=== PATIENT | male | born 1950 | race Caucasian/White ===

== ENCOUNTER 2017-03-02 09:00 | Day surgery (SDC) | payer MEDICARE, OTHER ==
[~2017-03-02 09:00] MED LIST: CEFAZOLIN 1 GM/D5W RTU 1 GM/50 ML RTUPB IV ONE; CEFAZOLIN 1 GM/D5W RTU 1 GM/50 ML RTUPB IV PRN; DEXTROSE 5%-1/2 NORMAL SALINE 1,000 ML IV PRN; DIAZEPAM 5 MG TABLET PO PRN; OXYCODONE-ACETAMINOPHEN 5-325 MG TABLET PO PRN
[2017-03-02 09:45] LABS: HEMATOCRIT 28.1 % (37.9-51.0); HEMOGLOBIN 9.9 g/dL (13.5-17.0); HGB HCT DIFFERENCE 1.6; MEAN CORPUSCULAR HEMOGLOBIN 29.4 pg (27.0-33.4); MEAN CORPUSCULAR HGB CONC 35.1 g/dL (32.0-36.0); MEAN CORPUSCULAR VOLUME 84 fl (80-97); RED BLOOD COUNT 3.36 10^6/uL (4.35-5.55); RED CELL DISTRIBUTION WIDTH 14.8 % (11.5-14.0); WHITE BLOOD COUNT 7.1 10^3/uL (4.0-10.5)
[2017-03-02 10:10] LABS: ANION GAP 17 (5-19); BLOOD UREA NITROGEN 26 mg/dL (7-20); CALCIUM 9.3 mg/dL (8.4-10.2); CARBON DIOXIDE 20 mmol/L (22-30); CHLORIDE 97 mmol/L (98-107); CREATININE RESULT 1.03 mg/dL (0.52-1.25); GLUCOSE 175 mg/dL (75-110); SODIUM 133.6 mmol/L (137-145)
--- NOTE | 2017-03-02 10:21 | RADIOLOGY REPORT (SQ) ---
EXAM DESCRIPTION: CHEST SINGLE VIEW COMPLETED DATE/TIME: 03/02/2017 9:09 am REASON FOR STUDY: Preop COMPARISON: None. EXAM PARAMETERS: NUMBER OF VIEWS: One view. TECHNIQUE: Single frontal radiographic view of the chest acquired. RADIATION DOSE: NA LIMITATIONS: None. FINDINGS: LUNGS AND PLEURA: No opacities, masses or pneumothorax. No pleural effusion. MEDIASTINUM AND HILAR STRUCTURES: No masses. Contour normal. HEART AND VASCULAR STRUCTURES: Heart normal in size. Normal vasculature. BONES: No acute findings. HARDWARE: None in the chest. OTHER: No other significant finding. IMPRESSION: NO ACUTE RADIOGRAPHIC FINDING IN THE CHEST. TECHNICAL DOCUMENTATION: JOB ID: [id number]- All Rights Reserved
[2017-03-02] MEDS ORDERED: FENTANYL CITRATE INJ/PF 100 MCG/2 ML AMPUL ONE (11:28)
[2017-03-02] MEDS ORDERED: BACITRACIN INJ 50,000 UNIT VIAL ONE (11:28)
[2017-03-02] MEDS ORDERED: MIDAZOLAM 2 MG/2 ML INJ ONE (11:28)
[2017-03-02] MEDS ORDERED: LIDOCAINE 0.5% INJ-PF (5 MG/ML) 50 ML SDV ONE (11:29)
--- NOTE | 2017-03-02 13:59 | PDOC DISCHARGE SUMMARY ---
Discharge Summary (SDC) - Discharge Final Diagnosis: Lung cancer. Date of Surgery: 03/02/17 Discharge Date: 03/02/17 Forms: Sedation D/C Instructions, Discharge POC-Surgical Service Treatment or Instructions: Discharge home [after recovery per ASU criteria]. Diet,as tolerated, when fully awake advance as tolerated. Activities within moderation encouraged. Follow up in my office by appointment in about [1 week]. Call for appointment. Leave wounds [covered], [keep clean and dry, until office visit in 1 week]. Meds per med rec. Hold of on school/work [until evaluation in office]. May shower [in 48 hrs], [try to keep operated area as dry as possible]. Prescriptions: Oxycodone HCl/Acetaminophen [Percocet 5-325 mg Tablet] 1 tab PO ASDIR PRN #15 tab PRN Reason: Referrals: JAJA JOSE MD [ACTIVE STAFF] - 03/11/17 3:15 pm Discharge Diet: As Tolerated Respiratory Treatments at Home: Deep Breathing/Coughing Discharge Activity: Activity As Tolerated Report the Following to Your Physician Immediately: Shortness of Breath, Unusual Bleeding
--- NOTE | 2017-03-02 14:03 | Operative Report ---
Operative Report DATE OF SURGERY: 03/02/17 PREOPERATIVE DIAGNOSIS: Lung cancer. POSTOPERATIVE DIAGNOSIS: Lung cancer. OPERATION: 1. Ultrasound evaluation of right internal jugular vein. 2. Port-A -Cath insertion via real-time access in the right internal jugular vein. 3. Angiogram and interpretation. SURGEON: JAJA BOYLE COMMUNITY ASSISTANT: None ANESTHESIA: Moderate Sedation TISSUE REMOVED OR ALTERED: Not applicable. COMPLICATIONS: None ESTIMATED BLOOD LOSS: 5 mL. INTRAOPERATIVE FINDINGS: Of a satisfactory right internal jugular vein to support catheter. Estimated to be about 1.2 cm in diameter. Good position of the catheter tip just down of the right atrium. Easy egress of blood and ingress of heparinized solution. The study shows smooth flow of contrast through the right atrium, ventricle and pulmonary outflow tract. PROCEDURE: After obtaining informed consent, the patient was taken to the [operating room] and positioned supine. The [right] neck and chest were prepared with chlorhexidine and draped out with sterile linen. After the " universal timeout ", in which it was verified that the patient continued to receive antibiotic, the procedure commenced. A steriley sheathed ultrasound probe was used to evaluate the [right] internal jugular vein. Local anesthesia was infiltrated adjacent to the probe. Access into the [right] internal jugular vein was obtained using a micropuncture needle, followed by micropuncture wire and then a micropuncture catheter. This was followed by introduction of a 0.035 guidewire the tip of which was placed down into the inferior vena cava . The port sites was marked , locally anesthetized and incision made. Dissection now proceeded to the deep subcutaneous subcutaneous tissues so that a pocket for the port was made. Meticulous hemostasis was secured and the catheter was tunneled between the 2 incisions. Proximally, the catheter was now positioned using a peel-away sheath. Distally the catheter was tailored to an appropriate length and then mated to the port using the contained fixating device. The port was now placed in the pocket and the catheter optimally positioned. The port was accessed with a Sheridan needle and an angiogram done under digital subtraction. The findings as dictated. With adequate and satisfactory positioning, both lumens of the chamber were irrigated with heparinized solution. The wounds were now closed using interrupted 3-0 PDS to the subcutaneous tissues and a continuous subcuticular suture of 4-0 Monocryl to the skin. These are reinforced with Steri-Strips over benzoin and then dressings applied. Copies of the dictated operative report for Dr. Jaja Weaver MD.
[2017-03-02 14:37] VITALS: BP 143/60
--- NOTE | 2017-03-02 16:20 | RADIOLOGY REPORT (SQ) ---
EXAM DESCRIPTION: PORTACATH INSERTION COMPLETED DATE/TIME: 03/02/2017 2:22 pm REASON FOR STUDY: C34.11 C34.11 MALIGNANT NEOPLASM OF UPPER LOBE, RIGHT BRONCHUS OR L COMPARISON: None. FLUOROSCOPY TIME: 0.6 minutes 7 images saved to PACS. TECHNIQUE: Intra-operative images acquired during surgical procedure to evaluate progress. NUMBER OF IMAGES: 7 LIMITATIONS: None. FINDINGS: Selected images from right Port-A-Cath placement. Tip overlies the SVC. IMPRESSION: IMAGE(S) OBTAINED DURING PROCEDURE. COMMENT: Quality ID [id number]: Final reports for procedures using fluoroscopy that document radiation exp osure indices, or exposure time and number of fluorographic images (if radiation exposure indices are not available) Please consult full operative report of the attending physician for description of the procedure. TECHNICAL DOCUMENTATION: JOB ID: [id number] [employer]- All Rights Reserved
== END 2017-03-02 14:15 | disposition home or self-care (01) ==
LOC: CCL 09:00
PROVIDERS: ATTEND Surgery
PROC: 05HM33Z Insertion of Infusion Device into Right Internal Jugular Vein, Percutaneous Approach (ICD-10-PCS; principal; 2017-03-02)
DX: C34.11 Malignant neoplasm of upper lobe, right bronchus or lung (principal); I10 Essential (primary) hypertension; E78.00 Pure hypercholesterolemia, unspecified; E11.9 Type 2 diabetes mellitus without complications; I25.2 Old myocardial infarction; F17.210 Nicotine dependence, cigarettes, uncomplicated; J44.9 Chronic obstructive pulmonary disease, unspecified
CPT/HCPCS: 36415; 82962; 85027; 80048; 36561; 76937; 77001; 71010; C1752; C1788; C1769; Q9967; J2250; J3490 ×2; J0690; A9270 ×2; J3010; J1644

== ENCOUNTER → 2017-08-15 | Outpatient (CLI) | payer MEDICARE, OTHER ==
--- NOTE | 2017-08-17 07:10 | RADIOLOGY REPORT (SQ) ---
EXAM DESCRIPTION: PET CT SKULL/THIGH COMPLETED DATE/TIME: 08/15/2017 5:50 pm REASON FOR STUDY: LUNG CANCER C34.11 MALIGNANT NEOPLASM OF UPPER LOBE, RIGHT BRONCHUS OR L COMPARISON: Report from PET-CT 08/14/2016, 12/01/2016 RADIONUCLIDE AND DOSE: 10.9 mCi F18 FDG The route of agent administration: Intravenous FASTING BLOOD SUGAR: 55 mg/dl CONTRAST TYPE AND DOSE: No CT contrast given. TECHNIQUE: Blood glucose level was verified. Above dose of FDG was injected intravenously. 2-D seg mented attenuation correction images were obtained from the base of the skull to the midthighs. Nonc ontrast CT images were obtained for attenuation correction and fusion with emission images. CT image s were performed without oral or intravenous contrast and are not sensitive for parenchymal lesions. A series of overlapping emission PET images were obtained. Images reviewed and manipulated at [facility] work station by the radiologist. Images stored on PACS. LIMITATIONS: None. FINDINGS: HEAD AND NECK: No areas of abnormal metabolic activity in the soft tissues of the head and neck. CHEST: In the medial right upper lobe, along the uppermost right hilum, a 2.3 x 1.5 cm spiculated shaina g mass is present with SUV 5.8 (was 2.6 x 1.6 cm with SUV 7.9 on 12/01/2016, was 3 x 1.9 cm with SUV o f 7 on 08/14/2016). The right paratracheal 8 x 7 mm lymph node is present with SUV 1.8 (was 1.4 x 1.3 cm in size with SUV [id number], was 1.2 x 0.8 cm with SUV of 6 on 08/14/2016). A 4 to 5 mm smooth round noncalcified granuloma is present in the periphery of the right lower lobe o n image 120, non metabolic. No pleural effusions. ABDOMEN AND PELVIS: No areas of abnormal metabolic activity in the abdomen or pelvis. Expected physi ologic activity is present in the genitourinary system and bowel. PROXIMAL LOWER EXTREMITIES: No areas of abnormal metabolic activity in the soft tissues of the lower extremities. BONES: No abnormal metabolic activity in the visualized skeleton. ADDITIONAL CT FINDINGS: Obstructive lung disease. Calcified pancreatic head. Right permanent centra l line tip superior vena cava. Moderate coronary artery calcification. Fatty bilateral inguinal her nias left larger than right OTHER: Liver background activity 1.5 SUV. Blood pool background activity 1.0 SUV IMPRESSION: Further decrease in size and metabolic activity of the right upper lobe nodule and right perihilar lymph node compared to previous exams. TECHNICAL DOCUMENTATION: JOB ID: [id number] [employer] All Rights Reserved Reading location - IP/workstation name: [email or web address]
== END ==
LOC: RAD 14:31
PROVIDERS: ATTEND Internal Medicine Hematology & Oncology
DX: C34.11 Malignant neoplasm of upper lobe, right bronchus or lung (principal); J44.9 Chronic obstructive pulmonary disease, unspecified
CPT/HCPCS: 78815; A9552

== ENCOUNTER → 2018-02-13 | Outpatient (CLI) | payer MEDICARE, OTHER ==
--- NOTE | 2018-02-14 07:58 | RADIOLOGY REPORT (SQ) ---
EXAM DESCRIPTION: PET CT SKULL/THIGH COMPLETED DATE/TIME: 02/13/2018 5:49 pm REASON FOR STUDY: LUNG CANCER C34.11 MALIGNANT NEOPLASM OF UPPER LOBE, RIGHT BRONCHUS OR L COMPARISON: Prior PET-CT 08/15/2017 RADIONUCLIDE AND DOSE: 11.1 mCi F18 FDG The route of agent administration: Intravenous FASTING BLOOD SUGAR: 128 mg/dl CONTRAST TYPE AND DOSE: No CT contrast given. TECHNIQUE: Blood glucose level was verified. Above dose of FDG was injected intravenously. 2-D seg mented attenuation correction images were obtained from the base of the skull to the midthighs. Nonc ontrast CT images were obtained for attenuation correction and fusion with emission images. CT image s were performed without oral or intravenous contrast and are not sensitive for parenchymal lesions. A series of overlapping emission PET images were obtained. Images reviewed and manipulated at [facility] by the radiologist. Images stored on PACS. LIMITATIONS: None. FINDINGS: HEAD AND NECK: No areas of abnormal metabolic activity in the soft tissues of the head and neck. CHEST: In the medial right upper lobe, a spiculated mass is present measuring 2.4 x 2.1 cm in size wi th SUV 3.7 (was 2.3 x 1.5 cm in size on PET-CT 08/15/2017 with SUV 5.8). There is 8 new 9 mm nodule along the posterior right upper lobe major fissure axial image 93 with SUV 1.4. A 3 x 2 cm right peritracheal lymph node is present on axial image 97 with SUV 6 (was 8 x 7 mm, SUV 1 .8 on 08/15/2017). ABDOMEN AND PELVIS: In the anterior left lobe liver, a 2.8 x 2.4 cm nodule is present on axial image 149 with SUV of 9. This is new compared to prior study. Multiple other smaller metastatic metabolically active nodules are present in the periphery of the ri ght and left lobe liver about 1 cm in size PROXIMAL LOWER EXTREMITIES: No areas of abnormal metabolic activity in the soft tissues of the lower extremities. BONES: No abnormal metabolic activity in the visualized skeleton. ADDITIONAL CT FINDINGS: Obstructive lung disease, moderate coronary artery calcifications, right perm anent central line tip superior vena cava. Calcifications at the pancreatic head. 4 cm left lower p ole renal cortical cyst. Bilateral fatty inguinal hernias OTHER: Liver background SUV 2.1. Blood pool background SUV 1.6 IMPRESSION: Progression of disease as above TECHNICAL DOCUMENTATION: JOB ID: [id number] [employer]- All Rights Reserved Reading location - IP/workstation name: [email or web address]
== END ==
LOC: RAD 15:30
PROVIDERS: ATTEND Internal Medicine Hematology & Oncology
DX: C34.11 Malignant neoplasm of upper lobe, right bronchus or lung (principal)
CPT/HCPCS: 78815; A9552

== ENCOUNTER 2018-03-18 07:49 | Outpatient (CLI) | payer MEDICARE, OTHER ==
[2018-03-18] MEDS ORDERED: NORMAL SALINE 250 ML IV PRN (07:58)
[2018-03-18 08:10] VITALS: BP 145/63
[2018-03-18] MEDS ORDERED: MAGNESIUM SULFATE 4 GM/D5W 100 ML IV ONE (08:15)
== END 2018-03-18 12:44 | disposition home or self-care (01) ==
LOC: II 07:49 → 5TH 07:53 → II 12:44
PROVIDERS: ATTEND Internal Medicine Hematology & Oncology
PROC: 3E043GC Introduction of Other Therapeutic Substance into Central Vein, Percutaneous Approach (ICD-10-PCS; principal; 2018-03-18)
DX: E83.40 Disorders of magnesium metabolism, unspecified (principal)
CPT/HCPCS: 96367; J3475; 96365; 96366

== ENCOUNTER 2018-03-19 07:08 | Emergency (ER) | payer MEDICARE, OTHER ==
--- NOTE | 2018-03-19 08:23 | ER Document Report ---
ED General - General Chief Complaint: GI Bleeding Stated Complaint: FOOT PAIN Time Seen by Provider: 03/19/18 07:58 Notes: 68-year-old male with a history of metastatic lung cancer presents to the ER after an episode of hemoptysis. The patient stated he is currently under immunotherapy and sees Dr. Watt for oncology. The patient stated he was coughing last night and this morning when he got up he coughed up some dark blood. There was some small clots. Patient denies fever chills denies sore throat. States he does get chest discomfort on and off now and then but none specifically right now denies nausea vomiting denies calf pain or significant leg swelling. TRAVEL OUTSIDE OF THE [place] IN LAST 30 DAYS: No - Related Data Allergies/Adverse Reactions: typhoid vaccine Allergy (Verified 03/19/18 07:10) Past Medical History - Social History Smoking Status: Former Smoker Family History: Other Patient has suicidal ideation: No Patient has homicidal ideation: No - Past Medical History Cardiac Medical History: Reports: Hx Heart Attack - no intervention, Hx Hypertension Denies: Hx Coronary Artery Disease Pulmonary Medical History: Reports: Hx COPD Denies: Hx Asthma, Hx Bronchitis, Hx Pneumonia Neurological Medical History: Denies: Hx Cerebrovascular Accident, Hx Seizures Renal/ Medical History: Denies: Hx Peritoneal Dialysis Musculoskeletal Medical History: Reports Hx Arthritis - generalized - Immunizations Hx Diphtheria, Pertussis, Tetanus Vaccination: Yes Review of Systems - Review of Systems Constitutional: denies: Chills, Fever Respiratory: Cough, Hemoptysis, Short of breath Gastrointestinal: denies: Abdominal pain, Nausea, Vomiting Hematologic/Lymphatic: denies: Swollen glands Neurological/Psychological: denies: Headaches -: Yes All other systems reviewed and negative Physical Exam - Vital signs Vitals: Temp Pulse Resp BP Pulse Ox 98.6 F 98 18 120/56 L 96 03/19/18 07:26 03/19/18 07:26 03/19/18 07:26 03/19/18 07:26 03/19/18 07:26 - Notes Notes: GENERAL_APPEARANCE: well_nourished but chronically ill-appearing, alert, cooperative VITALS: reviewed, see vital signs table. HEAD: no_swelling\tenderness on the head. EYES: PERRL, EOMI, conjunctiva_clear. NOSE: no_nasal_discharge. MOUTH: (-)decreased moisture. THROAT: no_throat_inflammation, no_airway_obstruction. no_lymphadenopathy NECK: supple, no_neck_tenderness, (-)thyromegaly. BACK: no_back_tenderness. CHEST_WALL: no_chest_tenderness. Port right chest LUNGS: no_wheezing, no_rales, no_rhonchi, (-)accessory muscle use, good air e xchange bilateral. HEART: normal_rate, normal_rhythm, normal_S1, normal_S2, (-)S3, (-)S4, no_murmur, no_rub. ABDOMEN: soft, no_abd_tenderness, (-)guarding, (-)rebound, no_organomegaly, no_abd_masses. EXTREMITIES: good pulses in all_extremities, no_swelling\tenderness in the extremities, no_edema. SKIN: warm, dry, good_color, no_rash. MENTAL_STATUS: speech_clear, oriented_X_3, normal_affect, r esponds_appropriately to questions. NEURO: Neg Motor or Sensory Deficits on exam, CN 2-12 intact, DTR 2+ symmetric x 4, No cerbellar signs Course - Re-evaluation Re-evalutation: 03/19/18 08:22 68-year-old male with a history of lung cancer presents with hemoptysis. The patient had an episode this morning where he coughed up once he has not coughed up any more blood at this time. We will do some laboratory testing. 03/19/18 11:55 CT scan shows likely a small amount of pneumonia. Because the patient is in around a healthcare facility I gave him vancomycin and Zosyn. I have spoken with his oncologist. Dr. Watt. The patient's vital signs very stable he has no oxygen requirements. No significant work of breathing. He looks very comfortable. She is okay with him going home and she will follow him up first thing next week. We will place the patient on Levaquin for home. 03/19/18 12:25 Patient has been doing well getting IV antibiotics and is comfortable going home. - Vital Signs Vital signs: Temp Pulse Resp BP Pulse Ox 98.6 F 98 12 156/66 H 97 03/19/18 07:26 03/19/18 07:26 03/19/18 11:42 03/19/18 11:42 03/19/18 11:59 - Laboratory Result Diagrams: 03/19/18 08:06 03/19/18 08:06 Laboratory results interpreted by me: 03/19/18 03/19/18 03/19/18 08:06 08:06 08:06 WBC 14.6 H RBC 3.18 L Hgb 9.2 L Hct 26.7 L RDW 15.0 H Seg Neuts % (Manual) 93 H Lymphocytes % (Manual) 1 L Abs Neuts (Manual) 13.6 H Abs Lymphs (Manual) 0.1 L PT 16.1 H APTT 68.9 H Sodium 131.4 L Chloride 96 L Magnesium 1.1 L* Direct Bilirubin 0.6 H ALT 15 L Creatine Kinase < 20 L Total Protein 5.8 L Albumin 2.8 L - EKG Interpretation by Me EKG shows normal: Sinus rhythm Rate: Normal Rhythm: NSR Discharge - Discharge Clinical Impression: Pneumonia Qualifiers: Pneumonia type: due to unspecified organism Laterality: right Lung location: upper lobe of lung Qualified Code(s): J18.1 - Lobar pneumonia, unspecified organism Condition: Good Disposition: HOME, SELF-CARE Instructions: Pneumonia ([facility]) Additional Instructions: Call Dr. Watt for an appointment next week Prescriptions: Levofloxacin [Levaquin 750 mg Tablet] 750 mg PO DAILY #10 tablet Referrals: LG PIERRE MD [Primary Care Provider] - Follow up as needed
[2018-03-19 08:49] LABS: HEMATOCRIT 26.7 % (37.9-51.0); HEMOGLOBIN 9.2 g/dL (13.5-17.0); MEAN CORPUSCULAR HEMOGLOBIN 28.9 pg (27.0-33.4); MEAN CORPUSCULAR HGB CONC 34.4 g/dL (32.0-36.0); MEAN CORPUSCULAR VOLUME 84 fl (80-97); PLATELET COUNT 273 10^3/uL (150-450); RED BLOOD COUNT 3.18 10^6/uL (4.35-5.55); WHITE BLOOD COUNT 14.6 10^3/uL (4.0-10.5)
[2018-03-19 08:59] LABS: INTERNATIONAL RATION (INR) 1.22; PROTHROMBIN TIME 16.1 SEC (11.4-15.4)
--- NOTE | 2018-03-19 08:59 | RADIOLOGY REPORT (SQ) ---
EXAM DESCRIPTION: CHEST 2 VIEWS COMPLETED DATE/TIME: 03/19/2018 8:39 am REASON FOR STUDY: Hemoptysis COMPARISON: 03/02/2017. Correlation: PET-CT 02/13/2018. EXAM PARAMETERS: NUMBER OF VIEWS: two views TECHNIQUE: Digital Frontal and Lateral radiographic views of the chest acquired. RADIATION DOSE: NA LIMITATIONS: none FINDINGS: LUNGS AND PLEURA: Segmental airspace disease in the right upper lobe. No effusions. MEDIASTINUM AND HILAR STRUCTURES: No masses or contour abnormalities. HEART AND VASCULAR STRUCTURES: Heart normal size. No evidence for failure. BONES: No acute findings. HARDWARE: Right-sided port tip overlying SVC. OTHER: No other significant finding. IMPRESSION: Right upper lobe pneumonia. TECHNICAL DOCUMENTATION: JOB ID: [id number] [employer]- All Rights Reserved Reading location - IP/workstation name: [email or web address]
[2018-03-19 09:00] LABS: PARTIAL THROMBOPLASTIN TIME 68.9 SEC (23.5-35.8)
[2018-03-19 09:09] LABS: ALANINE AMINOTRANSFERASE 15 U/L (21-72); ALBUMIN 2.8 g/dL (3.5-5.0); ALKALINE PHOSPHATASE 116 U/L (38-126); ANION GAP 9 (5-19); ASPARTATE AMINO TRANSFERASE 22 U/L (17-59); BILIRUBIN,DIRECT 0.6 mg/dL (0.0-0.4); BILIRUBIN,TOTAL 0.9 mg/dL (0.2-1.3); BLOOD UREA NITROGEN 16 mg/dL (7-20); CALCIUM 9.5 mg/dL (8.4-10.2); CARBON DIOXIDE 26 mmol/L (22-30); CHLORIDE 96 mmol/L (98-107); GLUCOSE 93 mg/dL (75-110); SODIUM 131.4 mmol/L (137-145); TOTAL PROTEIN 5.8 g/dL (6.3-8.2)
[2018-03-19 09:12] LABS: ABSOLUTE LYMPHOCYTES# (MANUAL) 0.1 10^3/uL (0.5-4.7); ABSOLUTE MONOCYTES # (MANUAL) 0.9 10^3/uL (0.1-1.4); ABSOLUTE NEUTROPHILS# (MANUAL) 13.6 10^3/uL (1.7-8.2); BASOPHILS % (MANUAL) 0 % (0-2); EOSINOPHILS % (MANUAL) 0 % (0-6); LYMPHOCYTES % (MANUAL) 1 % (13-45); MONOCYTES % (MANUAL) 6 % (3-13); SEGMENTED NEUTROPHILS % (MAN) 93 % (42-78); TOTAL CELLS COUNTED 100
[2018-03-19 09:13] LABS: ANISOCYTOSIS SLIGHT; OVALOCYTES 1+; PLATELET COMMENT ADEQUATE; POIKILOCYTOSIS 1+; SCHISTOCYTES SLIGHT
[2018-03-19 09:17] LABS: CREATINE KINASE < 20 U/L (55-170)
[2018-03-19 09:28] LABS: NT PRO BNP 694 pg/mL (5-900); TROPONIN I < 0.012 ng/mL
--- NOTE | 2018-03-19 10:23 | RADIOLOGY REPORT (SQ) ---
EXAM DESCRIPTION: CTA CHEST COMPLETED DATE/TIME: 03/19/2018 10:00 am REASON FOR STUDY: Hemoptysis COMPARISON: None. Correlation: PET-CT 02/13/2018 TECHNIQUE: CT scan of the chest performed using helical scanning technique with dynamic intravenous contrast injection. Images reviewed with lung, soft tissue and bone windows. Reconstructed coronal and sagittal MPR images reviewed. Additional 3 dimensional post-processing performed to develop Maximal Intensity Projection images (TX P). All images stored on PACS. All CT scanners at this facility use dose modulation, iterative reconstruction, and/or weight based d osing when appropriate to reduce radiation dose to as low as reasonably achievable (ALARA). [facility]: Dose Right [facility]: CareDose [facility]: Dose Right [facility]: Teradose 4D [facility]: nTAG Interactive CONTRAST TYPE AND DOSE: contrast/concentration: Isovue 350.00 mg/ml; Total Contrast Delivered: 75.0 ml; Total Saline Delivered: 75.0 ml RENAL FUNCTION: GFR > 60. RADIATION DOSE: CT Rad equipment meets quality standard of care and radiation dose reduction techniq ues were employed. CTDIvol: 13.2 - 14.4 mGy. DLP: 639 mGy-cm. . LIMITATIONS: None. FINDINGS: LUNGS AND PLEURA: Spiculated mass right upper lobe not significantly changed. Segmental a irspace disease more inferiorly in the right upper lobe consistent with superimposed pneumonia. The recently described smaller right upper lobe nodule along the major fissure is obscured by airspace di sease. No effusions. AORTA AND GREAT VESSELS: No aneurysm. Contrast bolus not optimized for the aorta. HEART: No pericardial effusion. PULMONARY ARTERIES: No emboli visualized in the main pulmonary arteries or the segmental branches. HILAR AND MEDIASTINAL STRUCTURES: Stable mediastinal adenopathy. HARDWARE: Right-sided port tip in the SVC. UPPER ABDOMEN: No significant findings. Limited exam. THYROID AND OTHER SOFT TISSUES: Stable. BONES: Nothing acute. 3D MIPS: Confirm above findings. OTHER: No other significant finding. IMPRESSION: No PE. Known right upper lobe mass and contiguous mediastinal adenopathy with interval development of adjacent airspace disease consistent with superimposed pneumonia. COMMENT: Quality ID # [id number]: Final reports with documentation of one or more dose reduction techniques (e.g., Automated exposure control, adjustment of the mA and/or kV according to patient size, use of iterative reconstruction technique) TECHNICAL DOCUMENTATION: JOB ID: [id number] [employer]- All Rights Reserved Reading location - IP/workstation name: [email or web address]
[2018-03-19] MEDS: MAGNESIUM SULFATE/D5W 1 GM/100 ML RTUPB IV SCH ×2 (11:35→12:55)
[2018-03-19] MEDS ORDERED: PIPERACILLIN/TAZOBACTAM 3.375 GM VIAL IV ONE (11:48)
[2018-03-19] MEDS ORDERED: VANCOMYCIN HCL INJ 1000 MG VIAL IV ONE (11:48)
[2018-03-19 15:57] VITALS: BP 148/69
== END 2018-03-19 15:58 | disposition home or self-care (01) ==
LOC: ER 07:08
DX: J18.1 Lobar pneumonia, unspecified organism (principal); R04.2 Hemoptysis; R06.02 Shortness of breath; Z87.891 Personal history of nicotine dependence; I10 Essential (primary) hypertension; J44.9 Chronic obstructive pulmonary disease, unspecified
CPT/HCPCS: 36591; 99285; 96365; 96366; 96368; 36415; 82550; 83735; 85025; 85610; 85730; 80053; 84484; 83880; 71046; 71275; J3475; J3370; J2543

== ENCOUNTER 2018-03-25 14:22 | Outpatient (CLI) | payer MEDICARE, OTHER ==
[2018-03-25] MEDS ORDERED: NORMAL SALINE 250 ML IV PRN (15:34)
[2018-03-25] MEDS ORDERED: MAGNESIUM SULFATE 4 GM/D5W 100 ML IV ONE (16:00)
[2018-03-25 21:38] VITALS: BP 167/66
== END 2018-03-25 21:59 | disposition home or self-care (01) ==
LOC: II 14:22 → 3S 14:23 → II 21:59
PROVIDERS: ATTEND Internal Medicine Hematology & Oncology
PROC: 3E043GC Introduction of Other Therapeutic Substance into Central Vein, Percutaneous Approach (ICD-10-PCS; principal; 2018-03-25)
DX: E83.40 Disorders of magnesium metabolism, unspecified (principal)
CPT/HCPCS: 96365; 96366; J3475; J7050

== ENCOUNTER 2018-04-14 16:16 | Emergency (ER) | payer MEDICARE, OTHER ==
--- NOTE | 2018-04-14 18:44 | ER Document Report ---
ED General - General Chief Complaint: Rectal Bleeding Stated Complaint: RECTAL BLEEDING Time Seen by Provider: 04/14/18 18:05 Notes: 68-year-old patient to the emergency department for evaluation of rectal bleeding. Patient states that he was pushing really hard to have a bowel movement and could not. When he looked down he saw a bunch of blood in the toilet. 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 Was getting the intake done with hospice today when he mentioned the bleeding from the rectum and they wanted him evaluated here. TRAVEL OUTSIDE OF THE [place] IN LAST 30 DAYS: No - HPI Onset: Just prior to arrival - Related Data Allergies/Adverse Reactions: typhoid vaccine Allergy (Verified 04/14/18 16:38) Past Medical History - General Information source: Patient - Social History Smoking Status: Current Every Day Smoker Chew tobacco use (# tins/day): No Frequency of alcohol use: None Drug Abuse: None Lives with: Spouse/Significant other Family History: Reviewed & Not Pertinent, Other Patient has suicidal ideation: No Patient has homicidal ideation: No - Past Medical History Cardiac Medical History: Reports: Hx Heart Attack - no intervention, Hx Hypertension Denies: Hx Coronary Artery Disease Pulmonary Medical History: Reports: Hx COPD Denies: Hx Asthma, Hx Bronchitis, Hx Pneumonia Neurological Medical History: Denies: Hx Cerebrovascular Accident, Hx Seizures Renal/ Medical History: Denies: Hx Peritoneal Dialysis Musculoskeletal Medical History: Reports Hx Arthritis - generalized Past Surgical History: Reports: Hx Appendectomy, Hx Tonsillectomy - Immunizations Hx Diphtheria, Pertussis, Tetanus Vaccination: Yes Review of Systems - Review of Systems Notes: Constitutional: denies: Chills, Diaphoresis, Fever, Malaise, Weakness EENT: denies: Eye discharge, Blurred vision, Tearing, Double vision, Nose congestion, Nose discharge, Throat swelling, Mouth pain Cardiovascular: denies: Palpitations, Heart racing, Orthopnea, Dyspnea, Chest pain Respiratory: denies: Cough, Hurts to breathe, Wheezing, +Shortness of breath Gastrointestinal: denies: Abdominal pain, Diarrhea, Nausea, Vomiting,. Does complain of bright red blood per rectum and constipation. Genitourinary: denies: Burning, Dysuria, Discharge, Frequency, Flank pain, Hematuria Musculoskeletal: denies: Joint pain, Joint swelling, Muscle pain, Muscle stiffness, back pain Hematologic/Lymphatic: denies: Anemia, Easy bleeding, Easy bruising, Blood clots Neurological/Psychological: denies: Confusion, Dementia, Depression, Loss of consciousness Skin: No lesions, no masses, no skin breakdown, no abscesses Physical Exam - Vital signs Vitals: Temp Pulse Resp BP Pulse Ox 97.8 F 83 18 127/59 H 100 04/14/18 16:40 04/14/18 16:40 04/14/18 16:40 04/14/18 16:40 04/14/18 16:40 Interpretation: Normal - General General appearance: Appears well, Alert - HEENT Head: Normocephalic, Atraumatic Eyes: Normal Pupils: PERRL - Respiratory Respiratory status: No respiratory distress Chest status: Nontender Breath sounds: Normal Chest palpation: Normal - Cardiovascular Rhythm: Regular Heart sounds: Normal auscultation Murmur: No - Abdominal Inspection: Normal Distension: No distension Bowel sounds: Normal Tenderness: Nontender Organomegaly: No organomegaly - Rectal Stool: Heme positive Hemorrhoids: External Notes: Fecal impaction - Back Back: Normal, Nontender - Extremities General upper extremity: Normal inspection, Nontender, Normal color, Normal ROM, Normal temperature General lower extremity: Normal inspection, Nontender, Normal color, Normal ROM, Normal temperature, Normal weight bearing. No: Renee's sign - Neurological Neuro grossly intact: Yes Cognition: Normal Orientation: AAOx4 [place] Coma Scale Eye Opening: Spontaneous Jeff Coma Scale Verbal: Oriented [place] Coma Scale Motor: Obeys Commands [place] Coma Scale Total: 15 Speech: Normal Motor strength normal: LUE, RUE, LLE, RLE Sensory: Normal - Psychological Associated symptoms: Normal affect, Normal mood - Skin Skin Temperature: Warm Skin Moisture: Dry Skin Color: Normal Course - Re-evaluation Re-evalutation: 04/14/18 20:05 Patient had a large amount of fecal impaction with some obvious external and internal hemorrhoids. After patient was given some pain medication manual disimpaction was performed. Large amount of stool was obtained. Enema given. Dulcolax given. No further rectal bleeding. Patient is currently transitioning to hospice so the utility of performing a whole bunch of labs at this time is probably not warranted. Patient is comfortable with this plan. No further bleeding at this time. Will DC in stable condition. 04/14/18 21:03 - Vital Signs Vital signs: Temp Pulse Resp BP Pulse Ox 97.8 F 83 18 127/59 H 100 04/14/18 16:40 04/14/18 16:40 04/14/18 16:40 04/14/18 16:40 04/14/18 16:40 Discharge - Discharge Clinical Impression: Fecal impaction in rectum, Rectal bleeding Lung cancer Qualifiers: Laterality: unspecified laterality Lung location: unspecified part of lung Qualified Code(s): C34.90 - Malignant neoplasm of unspecified part of unspecified bronchus or lung Disposition: HOME, SELF-CARE Instructions: Constipation ([facility]) Additional Instructions: More likely you have a bleeding internal hemorrhoid as well as potentially external hemorrhoid. He had a fecal impaction and this can exacerbate the hemorrhoids. At this time it does not appear that the bleeding is continuing. We did remove a large amount of stool. It will be very important that you do a daily care regimen to help with your constipation as the narcotics you are taking can make you significantly constipated. Make sure drinking plenty of liquids. Return immediately if you develop any severe pain, uncontrolled fever or other concerns especially if you are bleeding more. Prescriptions: Docusate Sodium [Colace 100 mg Capsule] 100 mg PO DAILY 30 Days #60 capsule Polyethylene Glycol 3350 [Miralax] 1 cap PO DAILY #1 powder
[2018-04-14] MEDS ORDERED: HYDROMORPHONE HCL INJ/PF 2 MG/ML AMPULE IM ONE (19:03)
[2018-04-14] MEDS ORDERED: NA PHOS,M-B/NA PHOS,DI-BA (ADULT) 133 ML ENEMA PR ONE (20:03)
[2018-04-14] MEDS ORDERED: BISACODYL 10 MG SUPP.RECT PR ONE (20:03)
[2018-04-14] MEDS ORDERED: LACTULOSE SYRUP 20 GM/30 ML UDCUP PO ONE (21:02)
[2018-04-14 21:31] VITALS: BP 110/62
== END 2018-04-14 21:32 | disposition home or self-care (01) ==
LOC: ER 16:16
DX: K56.41 Fecal impaction (principal); K62.5 Hemorrhage of anus and rectum; C34.90 Malignant neoplasm of unspecified part of unspecified bronchus or lung; C79.31 Secondary malignant neoplasm of brain; F17.200 Nicotine dependence, unspecified, uncomplicated; I25.2 Old myocardial infarction; I10 Essential (primary) hypertension; J44.9 Chronic obstructive pulmonary disease, unspecified
CPT/HCPCS: 99283; 96372; A9270 ×3; J1170; J3490